=== PATIENT | male | born 1940 | race Caucasian/White ===

== ENCOUNTER 2024-06-24 18:56 | Emergency (ER) | payer MEDICARE, SELFPAY ==
[2024-06-24 19:04] VITALS: BP 116/81
--- NOTE | 2024-06-24 19:41 | ED.SKININJ ---
HPI-Injury
General
Chief Complaint: Skin Surface Trauma
Source: patient
Exam Limitations: none
Time Seen by Provider: 06/24/24 19:22
History of Present Illness-Injury
Initial Injury comments:
84-year-old pxeks-[id number]-uxvoxttl male presents with laceration to left ring finger he sustained today pruning tomatoes. He cut his ring finger. He is on Eliquis. He has been unable to get it to stop bleeding at home. No numbness or tingling or
loss of function. He states he is up-to-date on his tetanus vaccine
Past History
Past History
ED Past Medical History: Arrthythmia, CAD and Other (BPH)
ED Past Surgical History: Other (Right shoulder surgery for rotator cuff repair, knee arthroscopy)
Social History
Personal:
Living: with family
Employment: Retired
Phy Exam
Physical Exam
Physical Exam:
General: Well-appearing male no acute respiratory distress
HEENT: Normocephalic atraumatic
Skin: Left ring finger with 1.5 cm flap type laceration over the distal ulnar aspect of the left ring finger that just approximates to the edge of the nail. No bony or tendon involvement. There is mild bleeding from the wound. Musculoskeletal
exam: Good range of motion left ring finger
Course
Orders/Labs/Results
Orders:
Orders
06/24/24 19:05
EKG [Electrocardiogram (*1)] Urgent
Reason for Study: Bradycardia / Tachycardia
EKG- Treatment ONCE
Vital Signs
Initial and Last Documented VS:
Initial Vital Signs
Temp Pulse Resp BP Pulse Ox
98.6 F 127 20 116/81 96
06/24/24 19:04 06/24/24 19:04 06/24/24 19:04 06/24/24 19:04 06/24/24 19:04
Last Documented Vital Signs
Temp Pulse Resp BP Pulse Ox
98.6 F 127 20 116/81 96
06/24/24 19:04 06/24/24 19:04 06/24/24 19:04 06/24/24 19:04 06/24/24 19:04
MDM/Problems Addressed
Differential Diagnosis Includes:
Laceration left ring finger. The wound was copiously irrigated with saline solution and anesthetized with 1% lidocaine. Then closed in a simple erupted fashion using 5-0 Prolene sutures. 5 sutures were required to close the wound. A dressing
was applied. Wound care instructions were given he was stable for discharge
*Critical Care Note
Total Time (30-74mins, 75-104mins- exclusive of procedures): Not Applicable
ED Attending Note
-
Portions of this chart may have been created with voice recognition software.� Occasional wrong word or��sound alike� substitutions may have occurred due to the inherent limitations of voice recognition software.
Discharge Plan
Departure
Patient Disposition: Home (Routine Discharge)
Date of Disposition: 06/24/24
Time of Disposition: 19:43
Patient with high blood pressure during this ER visit?: No
Discharge Problem:
Laceration
Instructions: Laceration Repair With Stitches (DC)
Referrals:
UNKNOWN - PT DOES,NOT KNOW [Family Provider] -
Activity Restrictions/Additional Instructions:
Keep clean. Have sutures removed in 10 to 12 days. Return if needed otherwise
Interventions
Interventions:
*Risk Screen - Suicide Last Done: 06/24/24 19:01
*General Assessment Last Done: 06/24/24 19:21
*Neglect/Abuse Screening Last Done: 06/24/24 19:01
*ED COVID-19 Vaccine History Last Done: 06/24/24 19:01
ED-Skin Assessment Last Done: 06/24/24 19:25
Discharge Date and Time
Print Language: KINYARWANDA
[2024-06-24 19:46] VITALS: BP 110/84
== END 2024-06-24 19:50 | disposition home or self-care (01) ==
LOC: EMR 18:56
PROVIDERS: EMERGENCY PHYSICIAN Emergency Medicine
DX: S61.215A Laceration without foreign body of left ring finger without damage to nail, initial encounter (principal); W27.1XXA Contact with garden tool, initial encounter; I25.10 Atherosclerotic heart disease of native coronary artery without angina pectoris; N40.0 Benign prostatic hyperplasia without lower urinary tract symptoms; Z79.01 Long term (current) use of anticoagulants
CPT/HCPCS: 99282; 12001; 93005

== ENCOUNTER 2025-05-18 06:18 | Day surgery (SDC) | payer MEDICARE, SELFPAY | END 2025-05-18 12:53 | disposition home or self-care (01) | LOC: GI 06:18 | PROVIDERS: ATTENDING PHYSICIAN Specialist | DX: R12 Heartburn (principal); K44.9 Diaphragmatic hernia without obstruction or gangrene; K22.89 Other specified disease of esophagus; K21.01 Gastro-esophageal reflux disease with esophagitis, with bleeding; K22.70 Barrett's esophagus without dysplasia | CPT/HCPCS: 43239; 88305; 88342 ==

== ENCOUNTER → 2025-06-21 08:03 | Outpatient (REF) | payer MEDICARE, SELFPAY ==
[2025-06-21 11:39] LABS: ALT (SGPT) 21 U/L (0-50); AST (SGOT) 22 U/L (17-59); Albumin 4.2 g/dl (3.5-5.0); Alkaline Phosphatase 75 U/L (38-126); Blood Urea Nitrogen 27 mg/dl (9-20); Calcium 9.8 mg/dl (8.4-10.2); Carbon Dioxide 24 mmol/L (22-30); Chloride 109 mmol/L (98-107); Glucose 90 mg/dl (70-99); HDL Cholesterol 50 mg/dl; LDL Cholesterol, Calculated 66 mg/dl; Potassium 4.8 mmol/L (3.5-5.1); Sodium 138 mmol/L (135-145); Total Protein 6.7 g/dl (6.3-8.2); Very Low Density Lipoprotein 9 mg/dl (0-30); eGFR > 60.00
== END ==
LOC: REG 08:03
PROVIDERS: ATTENDING PHYSICIAN Internal Medicine Cardiovascular Disease; FAMILY PHYSICIAN Internal Medicine
DX: I27.20 Pulmonary hypertension, unspecified (principal); E78.00 Pure hypercholesterolemia, unspecified
CPT/HCPCS: 36415; 80053; 80061

== ENCOUNTER 2025-07-28 10:07 | Emergency (ER) | payer MEDICARE, SELFPAY ==
[2025-07-28 10:13] VITALS: BP 137/91
[2025-07-28 10:47] VITALS: BP 129/96
--- NOTE | 2025-07-28 10:47 | EDRN ---
to add note, poor lead placement, this RN fixed leads and the pts HR is 70-80's, the pt has a palpable pulse, is AAO
[2025-07-28 10:52] VITALS: BP 129/96; BMI 26.0
--- NOTE | 2025-07-28 10:53 | ED.CVA ---
History of Present Illness
General
Chief Complaint: CVA/TIA Symptoms
Time Seen by Provider: 07/28/25 10:43
Onset of Stroke Symptoms
Onset of symptoms known: Yes
Date of onset of symptoms: 07/28/25
History of Present Illness
History of Present Illness:
85 yo male w/ hx of PAF on Shweta presents for evaluation of a transient period of 'memory loss' that occurred this AM while working on his computer. States he was composing an email when he suddenly forgot the names and faces of the individuals he
was addressing. He notes that prior to this, he felt abruptly dizzy for 10-15 seconds; the memory loss lasted 10-15 seconds as well. He is very concerned for a TIA. No recent fevers, chills, sweats, N/V/D, or medication changes
Past History
Past History
ED Past Medical History: Arrthythmia, CAD and Other (BPH)
ED Past Surgical History: Other (Right shoulder surgery for rotator cuff repair, knee arthroscopy)
Social History
Personal:
Living: with family
Employment: Retired
Review of Systems
Review of Systems
Allergies reviewed?: Yes
Phy Exam
Physical Exam
Physical Exam:
GEN: Well appearing, NAD, WDWN
HEENT: Oral mucosa moist, no scleral icterus, no nasal congestion
Cardiac: Regular rate
Lung: No respiratory distress, no tachypnea
MSK: No gross deformity or injuries
Skin: Good color, no pallor or jaundice, no rashes
Neuro: AO x3; CN II-XII grossly intact. BUE strength 5/5 in all méndez, sensation intact and symmetric. BLE strength 5/5 in all méndez, sensation intact and symmetric, normal finger to nose/heel to mack
Psych: Calm, cooperative
Course
Orders/Labs/Results
Orders:
Orders
07/28/25 10:52
CT Head W/o Iv Contrast Urgent
Comment:
Reason For Exam: memory loss
US Carotid [US Cerebrovascular] Urgent
Comment:
Reason For Exam: TIA symptoms
07/28/25 10:53
EKG- Treatment ONCE
07/28/25 10:54
Complete Blood Count/With Diff Urgent
Comprehensive Metabolic Panel Urgent
Abnormal Lab Results
07/28/25
10:54
RBC 4.10 L 10^6/uL
(4.70-6.10)
MCV 96.3 H fL
(80.0-94.0)
MCH 33.4 H pg
(27.0-31.0)
Abs Immat Gran (auto) 0.1 H 10^3/uL
(0-0.05)
Absolute Lymphs (auto) 1.0 L 10^3/uL
(1.2-3.4)
Immature Gran % 1.2 H %
(0-0.5)
Lymphocytes % 14.9 L %
(20.5-51.1)
Glucose 105 H mg/dl
(70-99)
07/28/25 10:54
07/28/25 10:54
Vital Signs
Initial and Last Documented VS:
Initial Vital Signs
Temp Pulse Resp BP Pulse Ox
97.5 F 91 18 137/91 98
07/28/25 10:13 07/28/25 10:13 07/28/25 10:13 07/28/25 10:13 07/28/25 10:13
Last Documented Vital Signs
Temp Pulse Resp BP Pulse Ox
98.6 F 70 23 137/97 98
07/28/25 10:52 07/28/25 13:00 07/28/25 13:00 07/28/25 13:00 07/28/25 12:45
MDM/Problems Addressed
MDM/Problems Addressed:
CTH and carotid doppler studies unremarkable. Pt's neuro exam remained normal. Case was reviewed w/ neuro crayon grader Dr Martines, feels there is no additional w/u needed given that pt is on OAC thus maximal medical therapy. Will d/c to outpatient PCP f/u
*Pulse Oximetry
SaO2: 98
Oxygen Mode of Delivery: Room air
Patient hypoxic: no
*Critical Care Note
Total Time (30-74mins, 75-104mins- exclusive of procedures): Not Applicable
ED Attending Note
-
Portions of this chart may have been created with voice recognition software.� Occasional wrong word or��sound alike� substitutions may have occurred due to the inherent limitations of voice recognition software.
Discharge Plan
Departure
Patient Disposition: Home (Routine Discharge)
Date of Disposition: 07/28/25
Time of Disposition: 12:53
Patient with high blood pressure during this ER visit?: No
Discharge Problem:
Awareness alteration, transient
Instructions: Transient Ischemic Attack (DC)
Referrals:
Juan Alberto Krishna MD [Family Provider, Internal Medicine]
Activity Restrictions/Additional Instructions:
Discuss the potential utility of an MRI of your brain with your primary doctor
Interventions
Interventions:
*Risk Screen - Suicide Last Done: 07/28/25 10:13
*General Assessment Last Done: 07/28/25 10:13
*Neglect/Abuse Screening Last Done: 07/28/25 10:52
*ED- Fall Risk Assessment Last Done: 07/28/25 10:52
*ED COVID-19 Vaccine History Last Done: 07/28/25 10:52
*Nursing Disposition Last Done: 07/28/25 13:04
ED- Pulmonary Assessment Last Done: 07/28/25 10:52
ED- Neurological Assessment Last Done: 07/28/25 10:52
ED- Cardiac Assessment Last Done: 07/28/25 10:52
ED Swallowing Screen Last Done: 07/28/25 10:52
Discharge Date and Time
Discharge Date/Time: 07/28/25 13:05
Print Language: QATARI
[2025-07-28 11:00] VITALS: BP 126/74
[2025-07-28 11:07] LABS: Hematocrit 39.5 % (39.0-52.0); Hemoglobin 13.7 g/dL (13.0-18.0); Mean Corp Hgb Conc. 34.7 g/dL (33.0-37.0); Mean Corpuscular Volume 96.3 fL (80.0-94.0); Nucleated Red Blood Cells % 0 % (-); Platelet Count 176 10^3/uL (130-400); Red Cell Dist. Width 13.1 % (11.5-14.5)
[2025-07-28 11:26] LABS: ALT (SGPT) 33 U/L (0-50); AST (SGOT) 27 U/L (17-59); Albumin 4.4 g/dl (3.5-5.0); Alkaline Phosphatase 87 U/L (38-126); Blood Urea Nitrogen 19 mg/dl (9-20); Calcium 10.2 mg/dl (8.4-10.2); Carbon Dioxide 25 mmol/L (22-30); Chloride 107 mmol/L (98-107); Estimated Creatinine Clearance 84 ml/min; Glucose 105 mg/dl (70-99); Potassium 4.8 mmol/L (3.5-5.1); Sodium 137 mmol/L (135-145); Total Protein 7.0 g/dl (6.3-8.2); eGFR > 60.00
--- NOTE | 2025-07-28 11:47 | VASLABRESULT ---
Preliminary VascularLab Result
- -
preliminary carotid ultrasound report, there is bilateral <50% ICA stenosis. Dr Gonzalez is the vascular reader but is in the OR at the time the study was completed. He will read study as soon as he is available
[2025-07-28 12:41] VITALS: BP 134/100
[2025-07-28 13:00] VITALS: BP 137/97
== END 2025-07-28 13:05 | disposition home or self-care (01) ==
LOC: EMR 10:07
PROVIDERS: Physician Assistant; EMERGENCY PHYSICIAN Emergency Medicine; FAMILY PHYSICIAN Internal Medicine
DX: R40.4 Transient alteration of awareness (principal); I48.0 Paroxysmal atrial fibrillation; I25.10 Atherosclerotic heart disease of native coronary artery without angina pectoris; N40.0 Benign prostatic hyperplasia without lower urinary tract symptoms; Z79.01 Long term (current) use of anticoagulants
CPT/HCPCS: 99284; 70450; 80053; 85025; 93880

== ENCOUNTER 2025-08-16 06:19 | Day surgery (SDC) | payer MEDICARE, SELFPAY | END 2025-08-16 11:53 | disposition home or self-care (01) | LOC: GI 06:19 | PROVIDERS: ATTENDING PHYSICIAN Specialist | DX: K44.9 Diaphragmatic hernia without obstruction or gangrene (principal); K22.70 Barrett's esophagus without dysplasia | CPT/HCPCS: 43239; 88305 ==

== ENCOUNTER → 2025-10-04 10:37 | Outpatient (REF) | payer MEDICARE, SELFPAY ==
[2025-10-04 11:19] LABS: Hematocrit 39.6 % (39.0-52.0); Hemoglobin 13.4 g/dL (13.0-18.0); Mean Corp Hgb Conc. 33.8 g/dL (33.0-37.0); Mean Corpuscular Volume 94.5 fL (80.0-94.0); Nucleated Red Blood Cells % 0 % (-); Platelet Count 219 10^3/uL (130-400); Red Cell Dist. Width 13.5 % (11.5-14.5)
[2025-10-04 11:32] LABS: D-Dimer 0.68 ug/mlFEU (0.00-0.50)
== END ==
LOC: REG 10:37
PROVIDERS: ATTENDING PHYSICIAN Internal Medicine Cardiovascular Disease; FAMILY PHYSICIAN Internal Medicine
DX: I48.0 Paroxysmal atrial fibrillation (principal); R06.02 Shortness of breath; R39.9 Unspecified symptoms and signs involving the genitourinary system
CPT/HCPCS: 36415; 83880; 85025; 85379

== ENCOUNTER → 2025-11-01 07:48 | Outpatient (REF) | payer MEDICARE, SELFPAY ==
[2025-11-01 09:13] LABS: Blood Urea Nitrogen 26 mg/dl (9-20); Calcium 9.7 mg/dl (8.4-10.2); Carbon Dioxide 21 mmol/L (22-30); Chloride 107 mmol/L (98-107); Glucose 93 mg/dl (70-99); Potassium 4.4 mmol/L (3.5-5.1); Sodium 135 mmol/L (135-145); eGFR > 60.00
== END ==
LOC: REG 07:48
PROVIDERS: ATTENDING PHYSICIAN Internal Medicine Cardiovascular Disease; FAMILY PHYSICIAN Internal Medicine
DX: I48.0 Paroxysmal atrial fibrillation (principal)
CPT/HCPCS: 36415; 80048; 83880